=== PATIENT | female | born 1950 | race Caucasian/White ===

== ENCOUNTER 2017-02-06 23:08 | Emergency (ER) | payer OTHER, MEDICARE ==
[~2017-02-06] VITALS: Ht 170.2 cm; Wt 56.7 kg
--- NOTE | 2017-02-06 23:20 | NUR ---
TO BED 1 A 67 YO FEMALE PT [facility] C/O HBP AND FEELING DIZZY X 1 DAY. NAD NOTED. AMBULATORY WITH STEADY GAIT. PLACED ON CARDIAC AND VS MONITOR. COMFORT AND SAFETY MEASURES RENDERED.
--- NOTE | 2017-02-06 23:20 | NUR ---
Dr Miranda at bedside to eval.
[2017-02-06] MEDS ORDERED: hydrALAZINE HCL IV 20 MG VIAL ONE (23:28)
[2017-02-06] MEDS ORDERED: hydrALAZINE HCL IV 20 MG VIAL IV ONE (23:30)
--- NOTE | 2017-02-06 23:33 | NUR ---
STARTED A SALINE LOCK ON THE RAC G20, BLOOD DRAWN AND SENT TO LAB.
--- NOTE | 2017-02-06 23:39 | NUR ---
PATIENT TO CT.
[2017-02-06 23:44] LABS: BASOPHILS # (AUTO) 0.1 /CMM (0.0-0.2); BASOPHILS % (AUTO) 0.8 % (0.0-2.0); EOSINOPHILS # (AUTO) 0.2 /CMM (0.0-0.7); EOSINOPHILS % (AUTO) 2.3 % (0.0-6.0); HEMATOCRIT 40 % (33-45); HEMOGLOBIN 13.5 g/dL (11.5-14.8); LYMPHOCYTES # (AUTO) 2.2 /CMM (0.8-4.8); LYMPHOCYTES % (AUTO) 24.1 % (20.0-44.0); MEAN CORPUSCULAR HEMOGLOBIN 31 PG (26.0-33.0); MEAN CORPUSCULAR HGB CONC 33 g/dl (31.0-36.0); MEAN CORPUSCULAR VOLUME 92 fL (82-100); MONOCYTES # (AUTO) 0.6 /CMM (0.1-1.30); MONOCYTES % (AUTO) 6.2 % (2.0-12.0); NEUTROPHILS % (AUTO) 66.6 % (43.0-81.0); PLATELET COUNT (AUTO) 234 /CMM (150-450); RDW COEFFICIENT OF VARIATION 13.3 (11.5-15.0); RED BLOOD CELL COUNT(AUTO) 4.39 MIL/uL (4.0-5.2)
[2017-02-07 00:02] LABS: CALCIUM, SERUM 10.1 mg/dL (8.5-10.1); CARBON DIOXIDE 28 mmol/L (21-32); CHLORIDE 101 mmol/L (98-107); CREATININE 0.6 mg/dL (0.6-1.3); GLUCOSE 106 mg/dL (74-106); POTASSIUM 4.3 mmol/L (3.5-5.1); SODIUM SERUM 136 mmol/L (136-145); UREA NITROGEN, BLOOD 20 mg/dL (7-18)
[2017-02-07 00:04] LABS: INR 1.05 (0.87-1.13); PROTHROMBIN TIME 10.9 SECS (9.5-12.7)
[2017-02-07 00:08] LABS: TROPONIN I < 0.017 ng/mL (0.00-0.056)
--- NOTE | 2017-02-07 00:30 | NUR ---
IV removed. Catheter intact and site benign. Pressure and 4x4 applied to site. No bleeding noted. Patient discharged to home in stable condition. Written and verbal after care instructions given. Patient verbalizes understanding of instruction. Patient is ambulatory with steady gait, no further complaints.
[2017-02-07 00:31] VITALS: BP 145/76
== END 2017-02-07 00:31 | disposition home or self-care (01) ==
LOC: ER 23:11
DX: I16.0 Hypertensive urgency (principal)
CPT/HCPCS: 36415; 70450; 71010; 80048; 84484; 85025; 85730; 93005; 96374; 99285; A4606; J0360; Z7610